=== PATIENT | male | born 1950 | race Caucasian/White ===

== ENCOUNTER 2018-05-18 05:52 | Day surgery (SDC) | payer BC ==
[~2018-05-18] VITALS: Ht 175.3 cm; Wt 64.0 kg
[~2018-05-18 05:52] MED LIST: ALLEGRA D PO; ATOR10 PO; Ativan0.5 MG PO; CLAR250 PO; CLOP75 PO; ETHA400 PO; KETO15TC TP; MAXALT; PEPCID COMPLETE PO; PRESERVISION A1 EACH PO; RIFA150 PO; SULTRIDS; Zofran Odt4 MG SL
== END 2018-05-18 22:37 | disposition home or self-care (01) ==
LOC: ORSCMMR 05:52 → ORD 07:30 → ORSCMMR 22:37
PROVIDERS: Surgery
PROC: 0WUF0JZ Supplement Abdominal Wall with Synthetic Substitute, Open Approach (ICD-10-PCS; principal; 2018-05-18 07:30)
DX: K42.0 Umbilical hernia with obstruction, without gangrene (principal); I10 Essential (primary) hypertension; K21.9 Gastro-esophageal reflux disease without esophagitis; Z79.899 Other long term (current) drug therapy
CPT/HCPCS: C1781; J0690; J1100; J1885; J2001; J2250; J2405; J2710; J3010; J7120

== ENCOUNTER → 2021-11-08 | Outpatient (CLI) | payer OTHER ==
[2021-11-08 08:39] LABS: BASOPHILS ABSOLUTE AUTO 0.02 K/mm3 (0.00-0.23); BASOPHILS PERCENT AUTO 0 % (0-2); EOSINOPHILS ABSOLUTE AUTO 0.01 K/mm3 (0.00-0.68); EOSINOPHILS PERCENT AUTO 0 % (0-6); Hematocrit 44.6 % (37.0-53.0); Hemoglobin 15.3 g/dL (13.5-17.5); IMMATURE GRAN ABSOLUTE AUTO 0.01 K/mm3 (0.00-0.10); IMMATURE GRAN PERCENT AUTO 0 % (0-1); LYMPHOCYTES PERCENT AUTO 7 % (21-46); MONOCYTES ABSOLUTE AUTO 0.58 K/mm3 (0.16-1.47); MONOCYTES PERCENT AUTO 9 % (4-13); Mean Corpuscular HGB 31.5 pg (26.0-34.0); Mean Corpuscular HGB Conc 34.3 g/dL (31.5-36.5); Mean Corpuscular Volume 92 fL (80-100); Mean Platelet Volume 8.9 fL (9.1-12.4); NEUTROPHILS PERCENT AUTO 84 % (41-73); Platelet Count 227 K/mm3 (150-400); RDW Coefficient Variation 12.1 % (11.7-14.2); RDW Standard Deviation 40.4 fL (35.1-46.3); Red Blood Cell Count 4.86 M/mm3 (4.30-5.90); White Blood Cell Count 6.72 K/mm3 (4.00-11.30)
[2021-11-08 08:40] LABS: Alanine Aminotransfer (ALT/SGP 22 U/L (12-78); Albumin, Blood 4.1 g/dL (3.4-5.0); Albumin/Globulin Ratio 1.4 (0.8-1.8); Alk Phos 54 U/L (40-126); Anion Gap 8 mmol/L (6-16); Aspartate Aminotrans (AST/SGOT 20 U/L (12-37); Bilirubin, Total 1.3 mg/dL (0.1-1.0); Blood Urea Nitrogen 13 mg/dL (8-24); Bun/Creatinine Ratio 15.1 (12.0-20.0); CO2, Blood 30 mmol/L (21-32); Calcium, Blood 9.1 mg/dL (8.5-10.1); Chloride, Blood 103 mmol/L (98-108); Creatinine, Blood 0.86 mg/dL (0.60-1.20); Glomerular Filtration Rate >60 (60-); Glucose, Blood 96 mg/dL (70-99); Potassium, Blood 4.5 mmol/L (3.5-5.5); Sodium, Blood 141 mmol/L (136-145); Total Protein, Blood 7.1 g/dL (6.4-8.2)
== END | disposition home or self-care (01) ==
LOC: LAB SHORT 08:18
PROVIDERS: Physician Assistant
DX: R10.32 Left lower quadrant pain (principal)
CPT/HCPCS: 80053; 85025

== ENCOUNTER 2022-05-24 08:53 | Day surgery (SDC) | payer MEDICARE, OTHER ==
[~2022-05-24] VITALS: Ht 172.7 cm; Wt 59.9 kg
== END 2022-05-24 11:10 | disposition home or self-care (01) ==
LOC: ORSCSDS 08:53
PROVIDERS: Internal Medicine Gastroenterology
PROC: 0DBN8ZX Excision of Sigmoid Colon, Via Natural or Artificial Opening Endoscopic, Diagnostic (ICD-10-PCS; principal; 2022-05-24 10:15)
PROC: 0DBL8ZX Excision of Transverse Colon, Via Natural or Artificial Opening Endoscopic, Diagnostic (ICD-10-PCS; principal; 2022-05-24 10:15)
DX: Z12.11 Encounter for screening for malignant neoplasm of colon (principal); Z86.010 Personal history of colon polyps; D12.3 Benign neoplasm of transverse colon; K63.5 Polyp of colon; K62.7 Radiation proctitis; E78.00 Pure hypercholesterolemia, unspecified; D64.9 Anemia, unspecified; Z85.46 Personal history of malignant neoplasm of prostate; Z79.899 Other long term (current) drug therapy
CPT/HCPCS: 88305; J2704

== ENCOUNTER → 2023-10-22 | Outpatient (CLI) | payer MEDICARE, OTHER ==
[~2023-10-22] MED LIST changes: +Cleocin HCl150 MG PO; +Norco 5-325 Ta1 EACH PO; +PRAV20 PO
[2023-10-22 14:13] LABS: BASOPHILS ABSOLUTE AUTO 0.03 K/mm3 (0.00-0.23); BASOPHILS PERCENT AUTO 1 % (0-2); EOSINOPHILS ABSOLUTE AUTO 0.24 K/mm3 (0.00-0.68); EOSINOPHILS PERCENT AUTO 4 % (0-6); Hematocrit 44.6 % (37.0-53.0); Hemoglobin 14.8 g/dL (13.5-17.5); IMMATURE GRAN ABSOLUTE AUTO 0.02 K/mm3 (0.00-0.10); IMMATURE GRAN PERCENT AUTO 0 % (0-1); LYMPHOCYTES ABSOLUTE AUTO 0.39 K/mm3 (0.84-5.20); LYMPHOCYTES PERCENT AUTO 6 % (21-46); MONOCYTES ABSOLUTE AUTO 0.55 K/mm3 (0.16-1.47); MONOCYTES PERCENT AUTO 9 % (4-13); Mean Corpuscular HGB 31.2 pg (26.0-34.0); Mean Corpuscular HGB Conc 33.2 g/dL (31.5-36.5); Mean Corpuscular Volume 94 fL (80-100); Mean Platelet Volume 8.9 fL (9.1-12.4); NEUTROPHILS ABSOLUTE AUTO 5.09 K/mm3 (1.96-9.15); NEUTROPHILS PERCENT AUTO 81 % (41-73); Platelet Count 236 K/mm3 (150-400); RDW Coefficient Variation 12.3 % (11.7-14.2); RDW Standard Deviation 42.5 fL (35.1-46.3); Red Blood Cell Count 4.75 M/mm3 (4.30-5.90); White Blood Cell Count 6.32 K/mm3 (4.00-11.30)
[2023-10-22 14:28] LABS: Albumin, Blood 3.6 g/dL (3.4-5.0); Albumin/Globulin Ratio 0.9 (0.8-1.8); Bun/Creatinine Ratio 16.2 (12.0-20.0); Calcium, Blood 9.4 mg/dL (8.5-10.1); Creatinine, Blood 1.17 mg/dL (0.60-1.20); Potassium, Blood 4.4 mmol/L (3.5-5.5); Total Protein, Blood 7.6 g/dL (6.4-8.2)
== END | disposition home or self-care (01) ==
LOC: LAB SHORT 14:08 → LAB 14:08
PROVIDERS: Physician Assistant
DX: R10.32 Left lower quadrant pain (principal)
CPT/HCPCS: 80053; 85025

== ENCOUNTER 2023-10-24 14:46 | Emergency (ER) | payer MEDICARE, OTHER ==
[~2023-10-24] VITALS: Ht 172.7 cm; Wt 59.9 kg
[~2023-10-24 14:46] MED LIST changes: -Cleocin HCl150 MG PO; -Norco 5-325 Ta1 EACH PO; -PRAV20 PO
[2023-10-24] MEDS ORDERED: PRAV20 PO (15:15)
[2023-10-24 16:22] LABS: Source, Urine Clean Catch
[2023-10-24 16:27] LABS: Appearance, Urine Clear (Clear); Bilirubin, Urine Neg (Neg); Blood, Urine Neg (Neg); Color, Urine Yellow (P-Yellow); Glucose Qualitative, Urine Neg (Neg); Ketones, Urine 3+ (Neg); Leukocyte Esterase, Urine Neg (Neg); Nitrite, Urine Neg (Neg); Protein, Urine Neg (Neg); Urobilinogen, Urine NORM (Normal)
[2023-10-24 17:00] VITALS: BP 135/74
[2023-10-24 17:09] LABS: Influenza A, PCR NEGATIVE (NEGATIVE); Influenza B, PCR NEGATIVE (NEGATIVE); Resp Syncytial Virus, PCR NEGATIVE (NEGATIVE)
[2023-10-24] MEDS ORDERED: Norco 5-325 Ta1 EACH PO (17:18)
[2023-10-24] MEDS ORDERED: Cleocin HCl150 MG PO (17:18)
[2023-10-24 20:06] LABS: SARS-Cov-2 (COVID-19) PCR, MMC POSITIVE (NEGATIVE)
== END 2023-10-24 17:29 | disposition home or self-care (01) ==
LOC: ER 14:46
PROVIDERS: Physician Assistant
DX: J69.0 Pneumonitis due to inhalation of food and vomit (principal); G43.909 Migraine, unspecified, not intractable, without status migrainosus; Z86.73 Personal history of transient ischemic attack (TIA), and cerebral infarction without residual deficits; Z79.899 Other long term (current) drug therapy; Z88.8 Allergy status to other drugs, medicaments and biological substances
CPT/HCPCS: 0241U; 71260; 74177; 80053; 81003; 83690; 85025; 93005; 93010; 96361; 96374; 96375; 99285-25; A9270; J1200; J1885; J2930; J7030; Q9967

== ENCOUNTER 2024-04-18 16:39 | Emergency (ER) | payer MEDICARE, OTHER ==
[~2024-04-18] VITALS: Ht 177.8 cm; Wt 68.0 kg
[~2024-04-18 16:39] MED LIST changes: +Cleocin HCl150 MG PO; +Norco 5-325 Ta1 EACH PO; +PRAV20 PO
[2024-04-18 17:43] LABS: Albumin, Blood 3.8 g/dL (3.4-5.0); Albumin/Globulin Ratio 1.1 (0.8-1.8); Bilirubin, Total 0.6 mg/dL (0.1-1.0); Bun/Creatinine Ratio 21.1 (12.0-20.0); Calcium, Blood 8.7 mg/dL (8.5-10.1); Creatinine, Blood 0.9 mg/dL (0.60-1.20); Globulin, Blood 3.5 g/dL (2.2-4.0); Total Protein, Blood 7.3 g/dL (6.4-8.2)
[2024-04-18 18:02] LABS: BASOPHILS ABSOLUTE AUTO 0.05 K/mm3 (0.00-0.23); BASOPHILS PERCENT AUTO 1 % (0-2); EOSINOPHILS ABSOLUTE AUTO 0.26 K/mm3 (0.00-0.68); EOSINOPHILS PERCENT AUTO 4 % (0-6); Hemoglobin 13.4 g/dL (13.5-17.5); IMMATURE GRAN ABSOLUTE AUTO 0.02 K/mm3 (0.00-0.10); IMMATURE GRAN PERCENT AUTO 0 % (0-1); LYMPHOCYTES ABSOLUTE AUTO 0.83 K/mm3 (0.84-5.20); LYMPHOCYTES PERCENT AUTO 14 % (21-46); MONOCYTES ABSOLUTE AUTO 0.66 K/mm3 (0.16-1.47); MONOCYTES PERCENT AUTO 11 % (4-13); Mean Corpuscular HGB 32.2 pg (26.0-34.0); Mean Corpuscular HGB Conc 33.5 g/dL (31.5-36.5); Mean Corpuscular Volume 96 fL (80-100); Mean Platelet Volume 9.1 fL (9.1-12.4); NEUTROPHILS ABSOLUTE AUTO 4.23 K/mm3 (1.96-9.15); NEUTROPHILS PERCENT AUTO 70 % (41-73); Platelet Count 201 K/mm3 (150-400); RDW Coefficient Variation 12.2 % (11.7-14.2); RDW Standard Deviation 42.9 fL (35.1-46.3); Red Blood Cell Count 4.16 M/mm3 (4.30-5.90); White Blood Cell Count 6.05 K/mm3 (4.00-11.30)
[2024-04-18] MEDS ORDERED: STIOLTO RESPIMAT4 G1 IH (18:12)
[2024-04-18] MEDS ORDERED: Sodium Chloride15 M1 (18:13)
[2024-04-18 19:30] VITALS: BP 125/61
== END 2024-04-18 19:46 | disposition home or self-care (01) ==
LOC: ER 16:39
PROVIDERS: Emergency Medicine
DX: I48.0 Paroxysmal atrial fibrillation (principal); G43.909 Migraine, unspecified, not intractable, without status migrainosus; Z88.8 Allergy status to other drugs, medicaments and biological substances; Z79.899 Other long term (current) drug therapy
CPT/HCPCS: 71046; 80053; 83735; 83880; 84484; 85025; 93005; 93010; 99285-25

== ENCOUNTER 2024-12-22 10:31 | Day surgery (SDC) | payer MEDICARE ==
[2024-12-22] VITALS (24 sets, daily range): BP systolic 98–134; BP diastolic 49–87
[~2024-12-22] VITALS: Ht 175.3 cm; Wt 61.9 kg
[~2024-12-22 10:31] MED LIST changes: +Lactated Ringer's 1,000 ML IV SCH; +STIOLTO RESPIMAT4 G1 IH; +Sodium Chloride15 M1
--- NOTE | 2024-12-22 11:11 | NUR ---
History, Chart, Medications and Allergies reviewed before start of procedure. Pre-Op teaching done. Pt verbalizes understanding. Patient confirms NPO status and agrees with scheduled surgery. Patient States Post-Procedure ride home has been arranged WITH , [facility].
[2024-12-22] MEDS ORDERED: Lidocaine HCl/Pf 1% 5 ML VIAL ONE (12:13)
[2024-12-22] MEDS ORDERED: EpiNEPhrine 1 MG/1 ML 1ML Vial ONE (12:13)
[2024-12-22] MEDS ORDERED: Lidocaine 2% Jelly Uro-Jet ONE (12:24)
[2024-12-22] MEDS ORDERED: Midazolam HCl 1MG / ML 2ML Vial ONE (12:25)
[2024-12-22] MEDS ORDERED: Lidocaine HCl 4% 5 ML SDA ONE (12:26)
[2024-12-22] MEDS ORDERED: propofoL 40 ML IV ONE (12:26)
[2024-12-22] MEDS ORDERED: Lidocaine HCl 4% 5 ML SDA INH SCH (12:35)
[2024-12-22] MEDS ORDERED: FentaNYL Citrate 50 MCG/ML 2 ML Injection ONE (13:02)
--- NOTE | 2024-12-22 13:33 | NUR ---
12/22/24 1333 Jamin Ascencio NO SPECIMENS COLLECTED
--- NOTE | 2024-12-22 15:31 | NUR ---
DISCHARGE NOTE PT A&OX4, BREATHING RA, AT BEDSIDE, PT REMAINS NPO THROUGHOUT STEP STAY. VSS, NO COMPLAINTS. PT REMAINED STABLE THROUGHOUT 2HR OBSERVATION PERIOD. Patient up to Ambulate independently. Gait steady. Discharge instructions reviewed with patient. Patient verbalizes understanding. Copy given to patient to take home. Dressing to procedure site clean, dry, intact with no visible drainage, swelling, erythema or bruising noted. Discharged via wheelchair to private car for ride home.
== END 2024-12-22 15:38 | disposition home or self-care (01) ==
LOC: ORSCMMR 10:31 → ORD 12:00 → ORSCMMR 12:00
PROVIDERS: Internal Medicine Critical Care Medicine
PROC: 0BJ08ZZ Inspection of Tracheobronchial Tree, Via Natural or Artificial Opening Endoscopic (ICD-10-PCS; principal; 2024-12-22 12:00)
DX: T17.500A Unspecified foreign body in bronchus causing asphyxiation, initial encounter (principal); Z79.899 Other long term (current) drug therapy
CPT/HCPCS: J0171; J2003; J2250; J2704; J3010; J7120

== ENCOUNTER 2025-07-14 09:17 | Day surgery (SDC) | payer MEDICARE, OTHER ==
[~2025-07-14] VITALS: Ht 175.3 cm; Wt 57.9 kg
[~2025-07-14 09:17] MED LIST changes: -Lactated Ringer's 1,000 ML IV SCH
[2025-07-14] MEDS ORDERED: Bentyl10 MG (09:42)
[2025-07-14] MEDS ORDERED: PRESERVISION A1 EAC2 (09:43)
[2025-07-14] MEDS ORDERED: Benzocaine Oral Spray 0.5ML UD ONE (10:35)
[2025-07-14 12:03] VITALS: BP 117/65
== END 2025-07-14 12:06 | disposition home or self-care (01) ==
LOC: ORSCSDS 09:17
PROVIDERS: Internal Medicine Gastroenterology
PROC: 0DB78ZX Excision of Stomach, Pylorus, Via Natural or Artificial Opening Endoscopic, Diagnostic (ICD-10-PCS; principal; 2025-07-14 11:00)
PROC: 0DBM8ZX Excision of Descending Colon, Via Natural or Artificial Opening Endoscopic, Diagnostic (ICD-10-PCS; principal; 2025-07-14 11:00)
PROC: 0D5P8ZZ Destruction of Rectum, Via Natural or Artificial Opening Endoscopic (ICD-10-PCS; principal; 2025-07-14 11:00)
PROC: 0DB98ZX Excision of Duodenum, Via Natural or Artificial Opening Endoscopic, Diagnostic (ICD-10-PCS; principal; 2025-07-14 11:00)
DX: K92.1 Melena (principal); R10.32 Left lower quadrant pain; Z86.0101 Personal history of adenomatous and serrated colon polyps; K63.5 Polyp of colon; K25.9 Gastric ulcer, unspecified as acute or chronic, without hemorrhage or perforation; R63.4 Abnormal weight loss; K62.7 Radiation proctitis; K64.4 Residual hemorrhoidal skin tags; E78.5 Hyperlipidemia, unspecified; I48.91 Unspecified atrial fibrillation; Z85.46 Personal history of malignant neoplasm of prostate
CPT/HCPCS: 88305; 88342; A9270; J2704; J7120